=== PATIENT | female | born 1990 | race Caucasian/White ===

== ENCOUNTER → 2024-05-02 | Day surgery (SDC) | payer OTHER ==
[2024-04-28 11:25] VITALS: BMI 26.5
[~2024-05-02] MED LIST: ACETAMINOPHEN INJECTION 100 ML ONE; ELECTROLYTE-148 SOLN 1,000 ML IV SCH; HYDROmorphone HCl 2 MG/ML VIAL ONE; IBUPROFEN 600 MG TABLET (FP) PO PRN; IBUPROFEN 800 MG/8 ML IJ IVPB PRN; KETOROLAC TROMETHAMINE 30 MG/1 ML VIAL ONE; LACTATED RINGERS SOLUTION 1,000 ML IV SCH; MIDAZOLAM HCL 2 MG/2 ML SINGLE DOSE VIAL ONE; ONDANSETRON 4 MG/2 ML VIAL IVPUSH PRN; ONDANSETRON 4 MG/2 ML VIAL ONE; PROPOFOL 20 ML ONE; ROCURONIUM BROMIDE 50 MG/5 ML SYRINGE ONE; SUGAMMADEX SODIUM 200 MG/2 ML VIAL ONE; oxyCODONE HCL 5 MG TABLET PO PRN
[2024-05-02 07:13] VITALS: RESP 18
[2024-05-02] MEDS: ONDANSETRON 4 MG/2 ML VIAL IVPUSH PRN (13:05)
[2024-05-02 14:56] VITALS: BP 114/77; PULSE 82; TEMP 97.7
== END | disposition home or self-care (01) ==
LOC: JASU-SURG 05:04
PROVIDERS: ATTEND Obstetrics & Gynecology
PROC: 0UT74ZZ Resection of Bilateral Fallopian Tubes, Percutaneous Endoscopic Approach (ICD-10-PCS; principal; 2024-05-02 09:00)
DX: Z30.2 Encounter for sterilization (principal)
CPT/HCPCS: 81025; 88305-TC; 94760; J0131

== ENCOUNTER 2024-08-08 16:32 | Emergency (ER) | payer OTHER ==
[2024-08-08 16:43] VITALS: BMI 27.6
[2024-08-08] MEDS ORDERED: FAMOTIDINE 20 MG/50 ML IVPB 20 MG/50 ML MG IVPB ONE (17:37)
[2024-08-08] MEDS ORDERED: ONDANSETRON 4 MG/2 ML VIAL ONE (17:37)
[2024-08-08] MEDS ORDERED: MAG HYDROX/AL HYDROX/SIMETH 30 ML UNIT-DOSE CUP ONE (17:37)
[2024-08-08] MEDS: SODIUM CHLORIDE 0.9% 500 ML INFUS.BAG IV ONE (17:44)
[2024-08-08] MEDS: MAG HYDROX/AL HYDROX/SIMETH 30 ML UNIT-DOSE CUP PO ONE (17:44)
[2024-08-08] MEDS: FAMOTIDINE 20 MG/50 ML IVPB 20 MG/50 ML MG IVPB ONE (17:45)
[2024-08-08] MEDS: ONDANSETRON 4 MG/2 ML VIAL IVPUSH ONE (17:45)
[2024-08-08 17:50] LABS: BASO % 1.1 % (0-2.0); EOS % 2.5 % (0-4.5); HEMATOCRIT 38.4 % (32.4-45.2); HEMOGLOBIN 13.3 GM/dL (10.7-15.3); MCH 27.5 pg (25.7-33.7); MCHC 34.6 g/dl (32.0-36.0); MEAN CELL VOLUME 79.6 fl (80-96); MEAN PLT VOLUME 7.9 fl (7.5-11.1); MONO % 9.7 % (3.8-10.2); NEUT % 50.7 % (42.8-82.8); PLATELET COUNT 418 10^3/uL (134-434); RBC 4.83 M/mm3 (3.60-5.2); RDW 13.4 % (11.6-15.6); WHITE BLOOD COUNT 8.2 K/mm3 (4.0-10.0)
[2024-08-08 18:07] LABS: POTASSIUM 4.6 mmol/L (3.5-5.1)
[2024-08-08 18:09] LABS: CALCIUM 9.5 mg/dL (8.5-10.1)
[2024-08-08 18:11] LABS: ALBUMIN 4.3 g/dl (3.4-5.0); BLOOD UREA NITROGEN 11.3 mg/dL (7-18); MAGNESIUM 2.1 mg/dL (1.8-2.4)
[2024-08-08 18:13] LABS: CREATININE 0.8 mg/dL (0.55-1.3)
[2024-08-08 18:14] LABS: BILIRUBIN,TOTAL 0.3 mg/dL (0.2-1); TOT PROT 8.4 g/dl (6.4-8.2)
[2024-08-08 18:29] VITALS: BP 107/73; PULSE 78; RESP 20; TEMP 98.4
== END 2024-08-08 18:58 | disposition home or self-care (01) ==
LOC: JER 16:32 → JERFT 16:32 → JER 18:58
PROC: 3E033GC Introduction of Other Therapeutic Substance into Peripheral Vein, Percutaneous Approach (ICD-10-PCS; principal; 2024-08-08)
PROC: 3E033GC Introduction of Other Therapeutic Substance into Peripheral Vein, Percutaneous Approach (ICD-10-PCS; 2024-08-08)
DX: K21.9 Gastro-esophageal reflux disease without esophagitis (principal); R10.13 Epigastric pain; R11.2 Nausea with vomiting, unspecified; R05.9 Cough, unspecified; Z20.822 Contact with and (suspected) exposure to COVID-19
CPT/HCPCS: 0241U-QW; 36415; 71046-TC-FY; 80053; 83690; 83735; 84703; 85025; 96365; 96375; 99284-25